=== PATIENT | male | born 1965 | race Caucasian/White ===

== ENCOUNTER 2019-02-14 12:47 | Observation (INO) ==
--- NOTE | 2019-02-12 10:17 | Anesthesiology Consultation ---
Date of Service February 12, 2019 Assessment & Plan (1) Encounter for pre-operative examination: Chart Review Chart Review: Acceptable Risk for Surgery History Surgery Operation Date: 02/14/19 11:55 Proposed Procedures p Inguinal Hernia Repair - Noman Pichardo DO Height/Weight Height: 5 ft 8 in Weight: 73.482 kg Allergies Allergy/AdvReac Type Severity Reaction Status Date / Time No Known Allergies Allergy Verified 12/19/18 09:23 Medications Home Medications Medication Instructions Recorded Confirmed Last Taken No Known Home Medications 12/19/18 01/29/19 Unknown Past Medical History Medical History Fatty liver Patient denies significant medical history Right inguinal hernia Past Surgical History Surgical History No history of previous surgery Social History Smoking Status: Unknown if ever smoked Testing Laboratory Results Hb 14.4 Hct 43 Plts 307K K+ 4.1 creat 0.71 Electrocardiogram Date: 01/25/19 Findings: + NSR @ (71)
[~2019-02-14 12:47] MED LIST: CEFAZOLIN 2000MG 2,000 MG/15 ML SYR IV SCH; LIDOCAINE HCL 2% 2 ML VIAL/AMP(20MG/ML) INFIL ONE; LR 15ML/HR IV SCH; MIDAZOLAM HCL 1 MG/ML 2ML VIAL ONE; PROPOFOL IV EMULSION 10 MG/ML 20 ML VIAL IV ONE; fentaNYL citrate 100 MCG/2 ML VIAL ONE
--- NOTE | 2019-02-14 13:28 | History & Physical Report ---
Date of Service February 14, 2019 Assessment & Plan (1) Incarcerated right inguinal hernia: We had a long discussion. Because of its size this will require an open repair with mesh. We discussed the risks of the surgery which include bleeding, infection, infection of mesh requiring explant, DVT, PE, [place], CVA, chronic pain, injury to the spermatic cord etc. Following this I answered all of his questions. He is agreeable to proceed with an open right inguinal hernia repair with mesh. History of Present Illness Primary Care Provider: [facility] This is an inmate who is had a right inguinal hernia since around 2013. It has become increasingly large and has incarceration into his scrotum. It bothers him daily. Allergies Allergy/AdvReac Type Severity Reaction Status Date / Time No Known Allergies Allergy Verified 02/14/19 13:22 Home Medications Home Medications Medication Instructions Recorded Confirmed Type No Known Home Medications 12/19/18 02/14/19 History Past Med/Surg History Medical History Fatty liver Patient denies significant medical history Right inguinal hernia Surgical History No history of previous surgery Social History Current Living Situation Comment: [facility] Smoking Status: Unknown if ever smoked Review of Systems All systems reviewed & are unremarkable except as noted in HPI & below Physical Exam Constitutional: WD/WN, vitals as above no acute distress and not ill ap pearing Eyes: PERRL, conjunctivae normal, anicteric sclerae EOM intact bilaterally ENMT: external ear and nose normal, oropharynx normal Ears: no hearing impairment Neck: trachea midline, no thyromegaly Respiratory: normal respiratory effort; no respiratory distress and does not use accessory muscles Cardiovascular: Rate/Rhythm: regular rate and regular rhythm Gastrointestinal (Abdomen): Soft nontender. He has a massive right inguinal hernia that is incarcerated and nonreducible. Penis and testicles are normal. Skin: no rashes, warm and dry Psychiatric: Orientation: alert, oriented x 3 and cooperative
[2019-02-14] MEDS ORDERED: MIDAZOLAM HCL 1 MG/ML 2ML VIAL ONE (13:50)
[2019-02-14] MEDS ORDERED: fentaNYL citrate 100 MCG/2 ML VIAL ONE ×2 (13:51)
[2019-02-14] MEDS ORDERED: ATROPINE SULFATE 0.1 MG/ML 10ML SYR IV PRN (13:56)
[2019-02-14] MEDS ORDERED: ONDANSETRON INJ 2 MG/ML 2 ML VIAL IV PRN ×2 (13:56→19:24)
[2019-02-14] MEDS ORDERED: HYDROmorphone INJ 1 MG/ML SYRINGE IV PRN (13:56)
[2019-02-14] MEDS ORDERED: fentaNYL citrate 100 MCG/2 ML VIAL IV PRN (13:56)
[2019-02-14] MEDS ORDERED: ePHEDrine sulfate 50 MG/ML AMP IV PRN (13:56)
[2019-02-14] MEDS ORDERED: KETOROLAC 30 MG/ML VIAL IV PRN (13:56)
[2019-02-14] MEDS ORDERED: BUPIVACAINE/EPINEPHRINE 0.5% MPF 1:200,000 30 ML VIAL ONE (14:25)
[2019-02-14] MEDS ORDERED: ONDANSETRON INJ 2 MG/ML 2 ML VIAL ONE (17:00)
[2019-02-14] MEDS ORDERED: LIDOCAINE HCL 2% 2 ML VIAL/AMP(20MG/ML) INFIL ONE (17:00)
[2019-02-14] MEDS ORDERED: PROPOFOL IV EMULSION 10 MG/ML 20 ML VIAL IV ONE (17:00)
[2019-02-14] MEDS ORDERED: DEXAMETHASONE SOD INJ 4 MG/ML VIAL ONE (17:00)
[2019-02-14] MEDS ORDERED: ePHEDrine sulfate 50 MG/ML SYR ONE (17:00)
--- NOTE | 2019-02-14 17:17 | Operative Report ---
PG Post Operative Report Pre & Post Diagnosis Operation Date: 02/14/19 14:10 Pre-Op Diagnosis: Intraoperative injury to the right vas deferens Post-Op Diagnosis: Same Estimated blood loss for this portion of procedure: None. Specimen sent pathology: Cut ends of the vas deferens x2 Findings: Excellent reapproximation of the vasa in a tension-free fashion using 5 interrupted 7-0 Prolene sutures under loupe magnification. I identified the patient and participated in the time-out.: Yes Procedure Operation Date: 02/14/19 14:10 Actual Procedures Vasovasotomy(Not Applicable) - Carmelo Noel MD Assistants: Dr. Noman Pichardo, Alan Whitmore PA-C. Assistance were present for division of suture, retraction, suction and blotting of blood for improved visualization, instrument passage and general patient safety. Brief history: Patient is a 53-year-old male inmate under general anesthesia undergoing a right open inguinal hernia repair of a massive hernia with intra- abdominal contents. I was called in for an intraoperative consultation for a suspected injury to the right vas. On scrubbing into the case the field was opened and exposed, the hernia had been reduced and the right testicle, which had been included in the hernia sac per report had been returned to the right hemiscrotum in a normal anatomic position. I examined the surgical field and indeed felt that the right vas had been completely transected at the time of blunt dissection of the hernia sac as per surgical report. Initially my impression was to simply ligate the vas and formalize the vasectomy on this side as it should not have a clinically significant impact on fertility for a unilateral injury with a normal contralateral exam. It was noted that the patie nt had a hypospadic phallus which caused some slight difficulties with initial Aparicio placement. Patient was examined under the drapes and the left testis was noted to be nonpalpable within the scrotal sac. Seen the patient's solitary right testicle on exam today and his anesthetized state decision was made to proceed with a vasovasotomy to the best of my abilities to attempt to allow for healing, future fertility and improved outcomes should more formal repair to be required in the future. I broke scrub and obtained my surgical loupes before scrubbing back into the procedure. Although no written consent was available timeout procedure was performed. A vasovasotomy tray was obtained and a vasovasotomy clamp was used to gently and atraumatically reapproximate the transected edges of the proximal and distal vas. Poe scissors were used to create a perpendicular and clean cut with the cut edges being sent for pathologic analysis. 7-0 Prolene was used in an interrupted fashion with Brand needle drivers to reapproximate the vasa edges. Lumen of the vas was well visualized and reapproximated on both sides with full-thickness bites. A total of 5 sutures were able to be placed with excellent visual reapproximation of the edges of the vas in a tension-free fashion. After this was complete the vas was returned to the surgical field and case was turned over to the primary consulting surgical service for completion. Postoperative care: No special additional care should be required postoperatively for this portion of the case. Surgeon Carmelo Noel MD [employer] As noted Estimated Blood Loss 0 Findings Consistent with Post-Op Diagnosis Specimens Cut end of the vas x2 Description of Procedure Vasovasotomy I attest to the content of the Intraoperative Record and any orders documented therein. Any exceptions are noted below.
[2019-02-14] MEDS ORDERED: KETOROLAC 30 MG/ML VIAL ONE (17:36)
--- NOTE | 2019-02-14 17:45 | Operative Report ---
PG Post Operative Report Pre & Post Diagnosis Operation Date: 02/14/19 14:10 Pre-Op Diagnosis: Right Inguinal Hernia Post-Op Diagnosis: incarcerated Right Inguinal Hernia I identified the patient and participated in the time-out.: Yes Procedure Operation Date: 02/14/19 14:10 Actual Procedures p Right Open Inguinal Hernia Repair with Mesh, Ileoinguinal neurolysis(Right) - Noman Pichardo DO s Vasovasotomy(Not Applicable) - Carmelo Noel MD Surgeon Noman Pichardo DO [employer] As noted Estimated Blood Loss 25 Findings Consistent with Post-Op Diagnosis Specimens portion of right vas deferens Drains phillip into soft tissue space Complications injury to vas deferens Description of Procedure After informed consent was obtained the patient was taken to the operating room and placed in supine position. After successful placement of the laryngeal mask airway a Aparicio catheter was placed. The lower abdomen was shaved and sterilely prepped and draped in usual fashion. I began with an inguinal incision with a 15 blade scalpel. We carried this down through the soft tissue using electrocautery. We were able to skeletonize the external oblique aponeurosis and with a fresh scalpel make a new incision. Metzenbaum scissors were used to extend this distally through the external ring as well as for several centimeters proximally. The patient had a massive incarcerated hernia. All of his anatomy was dramatically distorted once we were in the inguinal canal. There was fluid and a massive hernia sac with about 3 to 4 feet of small bowel in the soft tissue space. The hernia had actually pulled the right testicle up into the inguinal canal. We opened the hernia sac and began teasing it off of the cord and cord structures. During this process there was injury to the right vas which we immediately noted. We called Dr. Noel from urology immediately into the room. He scrubbed into the case to evaluate. Unfortunately the patient did not have a left testicle and not knowing his fertility status or desires we decided to do a vasovasotomy. Please see Dr. Noel's dictation in regards to that. Once he had repaired the vas deferens we were then able to continue dissecting the hernia sac away from the cord and cord structures. Eventually we were able to get it back to its neck and then transected the hernia sac using cautery. I then used 2-0 Vicryl in a running fashion to close the defect in the hernia sac. I should mention that we were able to reduce the several feet of small bowel prior to transecting the hernia sac as well as reduce the testicle into the scrotum. Once we had everything reduced I then decided to use a plug and patch mesh because of the large defect size. A large polypropylene plug was placed into the defect and secured laterally to the shelving portion of Poupart's ligament and medially to the midline musculature. Next we used a keyhole polypropylene mesh as an onlay. It was secured distally to Brenden's ligament laterally along the shelving portion of Poupart's ligament and medially along the midline musculature. The "arms" of the mesh were wrapped around behind the cord and cord structures and secured to underlying muscle. All the suturing for the mesh was done with 0 Ethibond. Thorough irrigation was performed. I was able to identify the ilioinguinal nerve which I sharply lysed to help prevent future nerve entrapment. Because of the large size of the hernia sac there was generalized oozing and fluid accumulating within the canal. To prevent hematoma and seroma formation I placed a 7 flat PHILLIP through a separate stab incision and into the inguinal canal. It was secured to the skin using 2-0 nylon. Thorough irrigation was performed. Marcaine was injected around the edge of the mesh for postoperative analgesia. We then used 2-0 Vicry l in a running fashion to close the external oblique aponeurosis. Soft tissue was irrigated and closed using 3-0 Vicryl for the deep layers and 4-0 Monocryl for skin. Some additional Marcaine was injected around the skin and Dermabond glue was used as a dressing. The patient was awakened extubated and transferred recovery in stable condition. My physician assistant secretary was present for the entire case. He helped prep patient. He helped with retraction throughout my dissection as well as assistance with wound closure and dressing placement. I attest to the content of the Intraoperative Record and any orders documented therein. Any exceptions are noted below.
--- NOTE | 2019-02-14 18:37 | Anesthesiology Progress Note ---
Date of Service February 14, 2019 Anesthesia Post Procedure Vital Signs Vital Signs: Temp Pulse Pulse Resp BP BP Pulse Ox 02/14/19 18:30 37.2 C 102 H 16 141/83 H 97 02/14/19 18:20 108 H 14 143/88 H 93 02/14/19 18:10 103 H 16 140/81 99 02/14/19 18:00 85 14 112/71 95 02/14/19 17:53 36.8 C 107 H 16 131/69 96 02/14/19 13:23 36.6 C 90 18 160/96 H 95 Transfer of Care Handoff Completed per policy Notes Mental Status: alert / awake / arousable Patient Amnestic to Procedure: Yes Nausea / Vomiting: adequately controlled Pain: adequately controlled Airway Patency, RR, SpO2: stable & adequate BP & HR: stable & adequate Hydration State: stable & adequate Anesthetic Complications: no major complications apparent
[2019-02-14] MEDS ORDERED: MoRPHine SULFATE 4 MG/ML 1 ML CARP\\VIAL IV PRN (19:24)
[2019-02-14] MEDS ORDERED: HYDROCODONE/ACETAMOPHEN 5/325MG TAB PO PRN ×2 (19:24)
[2019-02-14] MEDS ORDERED: MoRPHine SULFATE 10 MG/ML CARP/VIAL IV PRN (19:24)
[2019-02-14] MEDS: LACTATED RINGER'S 1,000 ML IV SCH (21:23)
[2019-02-14] MEDS: CEFAZOLIN 2000MG 2,000 MG/15 ML SYR IV SCH (21:23)
[2019-02-15 05:23] LABS: Basophils # (auto) 0.01 K/uL (0-0.2); Basophils % (auto) 0.1 %; Hematocrit (blood only) 33.9 % (42-52); Hemoglobin 12.1 g/dL (14.0-18.0); Immature Granulocytes # (auto) 0.02 K/uL (0.00-0.02); Immature Granulocytes % (auto) 0.2 %; Lymphocytes # (auto) 1.02 K/uL (1.2-3.4); Lymphocytes % (auto) 8.7 %; Mean Corpuscular Hemoglobin 31.8 pg (25-34); Mean Corpuscular Hgb Conc 35.7 g/dL (32-36); Mean Corpuscular Volume 89.2 fL (80-100); Mean Platelet Volume 9.2 fL (7.4-10.4); Monocytes # (auto) 1.03 K/uL (0.11-0.59); Monocytes % (auto) 8.8 %; Neutrophils # (auto) 9.59 K/uL (1.4-6.5); Neutrophils % (auto) 82.2 %; Platelet Count 252 K/uL (130-400); RDW Coefficient of Variation 12.3 % (11.5-14.5); RDW Standard Deviation 39.5 fL (36.4-46.3); White Blood Count 11.67 K/uL (4.8-10.8)
[2019-02-15 05:47] LABS: Calcium 8.5 mg/dl (8.5-10.1); Est GFR (African American) 123.1; Est GFR (Non-African American) 106.2; Potassium 3.9 mmol/L (3.5-5.1)
[2019-02-15] MEDS: CEFAZOLIN 2000MG 2,000 MG/15 ML SYR IV SCH ×2 (05:59→13:02)
--- NOTE | 2019-02-15 07:43 | Anesthesiology Progress Note ---
Date of Service February 15, 2019 Anesthesia Post Procedure Vital Signs Vital Signs: Temp Pulse Pulse Pulse Resp BP BP 02/15/19 07:00 37.0 C 77 17 116/68 02/15/19 02:55 37.4 C 93 H 16 125/72 02/14/19 22:35 37 C 95 H 16 124/81 02/14/19 21:25 36.3 C L 107 H 16 125/80 02/14/19 20:28 36.5 C 117 H 16 150/84 H 02/14/19 19:55 36.5 C 106 H 16 141/82 H 02/14/19 19:25 36.4 C L 107 H 18 144/80 H 02/14/19 19:10 109 H 18 140/87 02/14/19 19:00 37.2 C 104 H 18 132/89 02/14/19 18:50 107 H 16 128/94 02/14/19 18:40 100 H 16 129/81 02/14/19 18:30 37.2 C 102 H 16 141/83 H 02/14/19 18:20 108 H 14 143/88 H 02/14/19 18:10 103 H 16 140/81 02/14/19 18:00 85 14 112/71 02/14/19 17:53 36.8 C 107 H 16 131/69 02/14/19 13:23 36.6 C 90 18 160/96 H Pulse Ox 02/15/19 07:00 98 02/15/19 02:55 94 02/14/19 22:35 98 02/14/19 21:25 95 02/14/19 20:28 98 02/14/19 19:55 93 02/14/19 19:25 98 02/14/19 19:10 98 02/14/19 19:00 98 02/14/19 18:50 98 02/14/19 18:40 99 02/14/19 18:30 97 02/14/19 18:20 93 02/14/19 18:10 99 02/14/19 18:00 95 02/14/19 17:53 96 02/14/19 13:23 95 Notes Mental Status: alert / awake / arousable and participated in evaluation Nausea / Vomiting: adequately controlled Pain: adequately controlled Airway Patency, RR, SpO2: stable & adequate BP & HR: stable & adequate Hydration State: stable & adequate
--- NOTE | 2019-02-15 08:11 | Surgery Progress Note ---
Date of Service February 15, 2019 Assessment & Plan (1) Incarcerated right inguinal hernia: POD#1 difficult open right inguinal hernia repair and vasovasotomy Appreciate Urology assistance and recommendations Will give patient a void trial and remove thomas this AM Pain well managed, will have patient try PO pain Regular diet ordered for breakfast WILLOW drain with serosang output ~55cc; will discuss removal today Will likely plan on discharge to facility later on po abx regimen as above. doing well from my standpoint. pain control adequate. d/c WILLOW ok for d/c today. instructions given appreciate help from Dr. Noel on this case rec antibiotics for 5-7 days post op. questions answered. Subjective Patient with no complaints overnight. Pain has been well managed. He has not tried eating yet, but denies any nausea/vomiting. States he is passing flatus. Physical Exam Physical Exam: awake/alert, lying in bed Constitutional: well developed and well nourished; no acute distress Respiratory: normal respiratory effort Gastrointestinal (Abdomen): Inspection/Auscultation: + abdominal surgical incision (surgical dressing in place without e/o drainage. dermabond over incision) and + abdominal surgical drain present (55cc serosang. output) Percussion/Palpation: abdomen soft; abdomen nontender Results & Data Vital Signs (Past 12 Hours) Vital Signs Temp Pulse Pulse Resp BP Pulse Ox 02/15/19 07:00 37.0 C 77 17 116/68 98 02/15/19 02:55 37.4 C 93 H 16 125/72 94 02/14/19 22:35 37 C 95 H 16 124/81 98 02/14/19 21:25 36.3 C L 107 H 16 125/80 95 02/14/19 20:28 36.5 C 117 H 16 150/84 H 98 PG Care Time/CCT Total # of Minutes Spent Total Time Spent with Patient: Total time spent is greater than 50% in coordination of care (as documented) at patient's floor/unit and/or counseling patient:
--- NOTE | 2019-02-15 08:14 | Urology Progress Note ---
Date of Service February 15, 2019 Assessment & Plan (1) H/O vasovasostomy: A/P 53-year-old male inmate postoperative day #1 status post right intraoperative vasovasotomy. Findings reviewed with patient and guards at length. The potential impact of his intraoperative findings and events on future fertility is noted. Patient does not identify his childbearing prospects as a significant source of concern which is not unexpected considering his age and current incarceration. However, should it be decided by the facility and the patient that future fertility is of concern, would consider evaluation of a semen analysis in 2 to 3 months to check for viable sperm. Should this demonstrate viable sperm I suspect no further evaluation should be required save for perhaps consideration of a supererogatory repeat analysis in 6 to 12 months to ensure lack of scarring. Should the semen analysis demonstrate no viable sperm consistent with a completed vasectomy and a lack of re-fistulization after repair referral to an infertility specialist for a formal microscopic vasovasotomy could be considered. Again, I would suspect that childbearing status is not of a high priority in this particular situation. Patient vocalizes good understanding of the intraoperative findings, possible impact to his fertility and future avenues for evaluation. Thank you for allowing us to participate in this patient's acute care. Please recall our service with any further questions or concerns. Subjective 53-year-old male inmate who is postoperative day #1 status post right-sided vasovasotomy due to intraoperative injury to the right vas. Patient is restrained in bed, being seen by the primary general surgery service with guards present. He is in good spirits with no specific complaints. Intraoperative findings at the time of intraoperative urologic consult are reviewed with the patient as well as our portion of the surgical intervention. Trial of void and possible discharge back to facility is pending today per the primary service. Patient notes that he has never had a left-sided testis palpable as far as he knows. He denies prior consultation or surgery and appears to been unaware of his distal hypospadias. He identifies no baseline urologic concerns regarding his anatomy or symptoms. Review of Systems Constitutional: no fever and no chills Eyes: no diplopia Ear, Nose, Mouth, Throat: no ear trauma Respiratory: no hemoptysis Cardiovascular: no chest pain Integumentary: no acne and no boil Neurologic: no paralysis Psychiatric: no hopelessness Allergy / Immunological: no tongue swelling Physical Exam Constitutional: well developed and well nourished; no acute distress Eyes: eyes not dysmorphic ENMT: Ears: no external ear abnormality Neck: trachea midline; no anterior neck swelling Respiratory: no respiratory distress and does not use accessory muscles Cardiovascular: Vessels: radial pulses present Gastrointestinal (Abdomen): Inspection/Auscultation: abdomen not distended Percussion/Palpation: abdomen soft; abdomen nontender Dressing clean dry and intact with mild serosanguineous staining Musculoskeletal: Head/Neck/Chest: normocephalic and neck supple Skin: normal turgor Neurologic: awake; not obtunded Psychiatric: Orientation: oriented x 3 Genitourinary: Single palpable testis on the right-hand side, no palpable left-sided testis, distal hypospadias with mild chordee, silicone Aparicio catheter in place Lymphatic: no lymphadenopathy Results & Data Vital Signs (Past 12 Hours) Vital Signs Temp Pulse Pulse Resp BP Pulse Ox 02/15/19 07:00 37.0 C 77 17 116/68 98 02/15/19 02:55 37.4 C 93 H 16 125/72 94 02/14/19 22:35 37 C 95 H 16 124/81 98 02/14/19 21:25 36.3 C L 107 H 16 125/80 95 02/14/19 20:28 36.5 C 117 H 16 150/84 H 98 Laboratory Results Laboratory Results - last 48 hr 02/14/19 02/15/19 02/15/19 19:50 04:44 04:44 WBC 11.67 H RBC 3.80 L Hgb 12.1 L Hct 33.9 L MCV 89.2 MCH 31.8 MCHC 35.7 RDW Std Deviation 39.5 RDW Coeff of Og 12.3 Plt Count 252 MPV 9.2 Immature Gran % (Auto) 0.2 Neut % (Auto) 82.2 Lymph % (Auto) 8.7 [place] % (Auto) 8.8 Eos % (Auto) 0.0 Baso % (Auto) 0.1 Immature Gran # (Auto) 0.02 Neut # (Auto) 9.59 H Lymph # (Auto) 1.02 L [place] # (Auto) 1.03 H Eos # (Auto) 0.00 Baso # (Auto) 0.01 Sodium 138 Potassium 3.9 Chloride 106 Carbon Dioxide 28 Anion Gap 4.0 BUN 16 Creatinine 0.75 Est Cr Clr Drug Dosing 124.0 Est GFR ( Amer) 123.1 Est GFR (Non-Af Amer) 106.2 BUN/Creatinine Ratio 22.0 H Glucose 122 H Calcium 8.5 Nasal Screen MRSA (PCR) Negative PG Care Time/CCT Total # of Minutes Spent Total Time Spent with Patient: Total time spent is greater than 50% in coordination of care (as documented) at patient's floor/unit and/or counseling patient:
[2019-02-15] MEDS: LACTATED RINGER'S 1,000 ML IV SCH (10:07)
--- NOTE | 2019-02-15 10:45 | Discharge Summary ---
Date of Service February 15, 2019 Admission HPI Per Admitting Provider This is an inmate who is had a right inguinal hernia since around 2013. It has become increasingly large and has incarceration into his scrotum. It bothers him daily. Principal Diagnosis Incarcerated right inguinal hernia Discharge Exam Gastrointestinal (Abdomen) Inspection/Auscultation: + abdominal surgical incision (clean, dry); abdomen not distended Percussion/Palpation: abdomen soft Discharge Data Allergies Allergy/AdvReac Type Severity Reaction Status Date / Time No Known Allergies Allergy Verified 02/14/19 13:22 Consultations 02/14/19 19:24 Consult Urology Routine Procedures Performed Operation Date: 02/14/19 14:10 Actual Procedures p Right Open Inguinal Hernia Repair with Mesh, Ileoinguinal neurolysis(Right) - DO odell Gonzales Vasovasotomy(Not Applicable) - Carmelo Noel MD Hospital Course (1) Incarcerated right inguinal hernia: 53 y/o male inmate with large right inguinal hernia taken to the OR for right inguinal hernia repair. Injury to the right vas deferens occurred and was repaired intraoperatively by urology. He was observed overnight due to size of hernia and risk of urinary retention. Paaricio cath was left overnight and removed in the morning. WILLOW drain was also removed as overnight drainage was minimal. He was able to void and tolerate diet. He was stable for discharge back to correctional facility. Total Time Total Time Spent Total Time Spent (In Minutes): 10 Discharge Plan Discharge Items Patient Disposition: Correctional Facility Reason For Visit: Right Inguinal Hernia Discharge Diagnosis: right inguinal hernia repair and vas deferens repair Activity: Per Instructions section Lifting: No more than 10 pounds Bathing Comment: you may shower starting today Exercise/Sports: Wait until after follow-up appointment Exercise Comment: light activity for 6 weeks. Non-emergency contact: Surgeon Call non-emergency contact if: you have any medication questions, your symptoms worsen, your pain is not controlled, your pain is worsening, you have a fever, your temperature is above 101.5, your wound has increased redness, your wound has increased drainage and your wound pain has increased Follow-up/Referrals: Noman Pichardo DO [Surgeon] - (Please call to schedule follow up in 1-2 weeks. You may call the office sooner if you have any questions/concerns.) Mike HAN [Primary Care Provider] - Diet: Regular Addtl Attending Provider Instructions: You should complete a 7 day course of antibiotics post operatively- recommend Bactrim DS orally twice daily You may take Tylenol or Ibuprofen if needed for pain. If your facility is able to provide you with Tylenol#3 you may use it for severe pain. Do NOT exceed 4grams of Acetaminophen within a 24 hour time period. Pending Studies at Discharge: No Skilled Items Patient informed of condition?: Yes DNR: No Discharge Level of Care: Other Communicable Disease: No Discharge Prognosis: Stable Lines: None Urinary Catheter: No Medications and DC Order Prescriptions: New sulfamethoxazole-trimethoprim [Bactrim DS] 800-160 mg tablet 1 tab PO BID 7 Days Qty: 14 RF: 0 Krames/Other Patient Handouts: Surgery Prevent DVT After Admission Data Admit Date/Time: 02/14/19 17:43 Attending Provider: Noman Pichardo Admit Provider: Noman Pichardo Primary Care Provider: Mike HAN Other Providers: Carmelo Noel I. Other Interventions: Discharge Summary Assessment (RN) Last Done: 02/15/19 10:39
== END 2019-02-15 13:56 ==
LOC: ASU 12:47 → 3E 12:47